=== PATIENT | female | born 1975 | race Caucasian/White ===

== ENCOUNTER 2019-12-18 20:11 | Observation (INO) ==
[2019-12-18] MEDS ORDERED: Morphine Sulfate 2 MG/ML SYRINGE IVP ONE ×2 (21:27→23:38)
[2019-12-18] MEDS ORDERED: *HR* Promethazine 25 MG/ML VIAL IM ONE (21:27)
[2019-12-18] MEDS ORDERED: 0.9 % Sodium Chloride 1,000 ML IVC ONE (21:27)
[2019-12-18] MEDS ORDERED: Isovue-370 500 ML BOTTLE IVP ONE (21:45)
[2019-12-18 22:17] LABS: Bacteria,Urine Few per hpf (None-Few); Bilirubin,Urine Negative (Negative); Blood,Urine Moderate (Negative); Clarity,Urine Turbid (Clear); Color,Urine Yellow (Yellow); Glucose,Urine (UA) Normal (Normal); Granular Casts,Urine Few per lpf (None Seen); Hyaline Casts,Urine Few per lpf (None Seen); Ketones,Urine Negative (Negative); Leukocyte Esterase,Urine Negative (Negative); Mucus,Urine Many per lpf (None-Few); Nitrite,Urine Negative (Negative); Protein,Urine 50 mg/dL (Neg-Trace); Specific Gravity,Urine 1.026 (1.010-1.025); Squamous Epithelial Cell,Urine Many per hpf (None-Few); Urobilinogen,Urine Normal (Normal)
[2019-12-18 22:21] LABS: Basophils # 0.1 K/mcL (0.0-0.2); Basophils % 0.4 %; Eosinophils % 0.2 %; Hematocrit 43.3 % (35.3-44.9); Hemoglobin 14.5 g/dL (11.5-15.4); Immature Granulocytes % 0.4 % (0-4); Lymphocytes # 1.4 K/mcL (0.6-4.6); Lymphocytes % 8.4 %; Mean Corpuscular HGB Conc 33.5 g/dL (31.6-35.5); Mean Corpuscular Hemoglobin 32.2 pg (28.0-33.3); Mean Platelet Volume 9.7 fL (9.4-12.4); Monocytes # 0.7 K/mcL (0.0-1.3); Monocytes % 4.3 %; Neutrophils # 14.8 K/mcL (1.6-8.9); Platelet Count 397 K/mcL (140-400); Red Blood Count 4.51 M/mcL (3.82-4.97); Red Cell Distribution Width 14.4 % (11.5-14.5); Segmented Neutrophils % 86.3 %; White Blood Count 17.1 K/mcL (4.3-11.1)
[2019-12-18 22:30] LABS: Alanine Aminotransferase 8 Units/L (7-52); Albumin 3.9 g/dL (3.5-5.7); Albumin/Globulin Ratio 1.2 (1.1-2.2); Alkaline Phosphatase 75 Units/L (34-104); Aspartate Amino Transferase 12 Units/L (13-39); BUN/Creatinine Ratio 11 (6-26); Bilirubin,Direct 0.1 mg/dL (0.0-0.2); Bilirubin,Indirect 0.3 mg/dL (0.0-1.0); Bilirubin,Total 0.4 mg/dL (0.3-1.0); Blood Urea Nitrogen 8 mg/dL (6-20); Calcium 9.2 mg/dL (8.6-10.3); Carbon Dioxide 29 mEq/L (23-29); Chloride 103 mEq/L (98-107); Globulin 3.3 g/dL (2.4-3.5); Glucose 145 mg/dL (70-105); Lipase 27 Units/L (11-82); Osmolality,Calculated 291 (280-300); Potassium 3.5 mEq/L (3.5-5.1); Sodium 140 mEq/L (136-145); Total Protein 7.2 g/dL (6.4-8.9); eGFR For African Americans > 60 (> 60); eGFR For Non-African Americans > 60 (> 60)
[2019-12-18] MEDS ORDERED: MetroNIDAZOLE 500 MG/100 ML 500 MG/100 ML BAG IVPB ONE (23:30)
[2019-12-19] MEDS ORDERED: Ondansetron 4 MG/2 ML VIAL IVP PRN (02:42)
[2019-12-19] MEDS ORDERED: Naloxone 0.4 MG/ML INJ IVP PRN (02:42)
[2019-12-19] MEDS ORDERED: 0.9 % Sodium Chloride 1,000 ML IVC SCH (02:45)
[2019-12-19] MEDS ORDERED: methylPREDNISolone 125 MG/2 ML VIAL IVP SCH (03:30)
[2019-12-19 05:35] LABS: Basophils % 0.3 %; Eosinophils # 0.1 K/mcL (0.0-0.6); Eosinophils % 0.8 %; Hematocrit 38.3 % (35.3-44.9); Immature Granulocytes % 0.4 % (0-4); Lymphocytes # 1.5 K/mcL (0.6-4.6); Mean Corpuscular HGB Conc 32.9 g/dL (31.6-35.5); Mean Corpuscular Hemoglobin 32.4 pg (28.0-33.3); Mean Corpuscular Volume 98.5 fL (83.0-100.0); Monocytes # 0.6 K/mcL (0.0-1.3); Monocytes % 5.6 %; Neutrophils # 7.9 K/mcL (1.6-8.9); Platelet Count 309 K/mcL (140-400); Red Blood Count 3.89 M/mcL (3.82-4.97); Red Cell Distribution Width 14.6 % (11.5-14.5); Segmented Neutrophils % 77.9 %; White Blood Count 10.1 K/mcL (4.3-11.1)
[2019-12-19 05:36] LABS: Hemoglobin 12.6 g/dL (11.5-15.4)
[2019-12-19 05:53] LABS: Alanine Aminotransferase 6 Units/L (7-52); Albumin 3.1 g/dL (3.5-5.7); Albumin/Globulin Ratio 1.2 (1.1-2.2); Alkaline Phosphatase 55 Units/L (34-104); Aspartate Amino Transferase 11 Units/L (13-39); BUN/Creatinine Ratio 11 (6-26); Bilirubin,Total 0.5 mg/dL (0.3-1.0); Blood Urea Nitrogen 6 mg/dL (6-20); Calcium 7.8 mg/dL (8.6-10.3); Carbon Dioxide 25 mEq/L (23-29); Chloride 107 mEq/L (98-107); Globulin 2.6 g/dL (2.4-3.5); Glucose 118 mg/dL (70-105); Osmolality,Calculated 285 (280-300); Potassium 3.3 mEq/L (3.5-5.1); Sodium 138 mEq/L (136-145); Total Protein 5.7 g/dL (6.4-8.9); eGFR For African Americans > 60 (> 60); eGFR For Non-African Americans > 60 (> 60)
[2019-12-19 07:30] VITALS: BP 102/66
== END 2019-12-19 10:44 | disposition home or self-care (01) ==
LOC: 3ANU 20:11 → EMEROOARM 20:11 → SUATTDRO 12-19 01:53 → 3ANU 12-19 02:20
PROVIDERS: ADMIT Student in an Organized Health Care Education/Training Program; ATTEND Student in an Organized Health Care Education/Training Program

== ENCOUNTER 2021-04-10 04:26 | Observation (INO) ==
[2021-04-10] MEDS ORDERED: *HR* HYDROmorphone (PF) 1 MG/ML SYRINGE IVP ONE ×2 (05:16→07:36)
[2021-04-10] MEDS ORDERED: Ondansetron 4 MG/2 ML VIAL IVP ONE (05:16)
[2021-04-10] MEDS ORDERED: Isovue-370 500 ML BOTTLE IVP ONE (05:17)
[2021-04-10 05:29] LABS: Basophils # 0.1 K/mcL (0.0-0.2); Basophils % 0.6 %; Eosinophils # 0.2 K/mcL (0.0-0.6); Eosinophils % 1.7 %; Hematocrit 38.1 % (35.3-44.9); Hemoglobin 12.7 g/dL (11.5-15.4); Immature Granulocytes % 0.2 % (0-4); Lymphocytes # 1.8 K/mcL (0.6-4.6); Lymphocytes % 14.3 %; Mean Corpuscular HGB Conc 33.3 g/dL (31.6-35.5); Mean Corpuscular Hemoglobin 31.8 pg (28.0-33.3); Mean Corpuscular Volume 95.3 fL (83.0-100.0); Mean Platelet Volume 9.4 fL (9.4-12.4); Monocytes # 0.9 K/mcL (0.0-1.3); Monocytes % 6.8 %; Neutrophils # 9.7 K/mcL (1.6-8.9); Platelet Count 499 K/mcL (140-400); Red Cell Distribution Width 13.2 % (11.5-14.5); Segmented Neutrophils % 76.4 %; White Blood Count 12.8 K/mcL (4.3-11.1)
[2021-04-10 05:45] LABS: Alanine Aminotransferase 6 Units/L (7-52); Albumin 3.3 g/dL (3.5-5.7); Albumin/Globulin Ratio 1.1 (1.1-2.2); Alkaline Phosphatase 73 Units/L (34-104); Aspartate Amino Transferase 11 Units/L (13-39); BUN/Creatinine Ratio 7 (6-26); Bilirubin,Total 0.4 mg/dL (0.3-1.0); Blood Urea Nitrogen 5 mg/dL (6-20); Calcium 8.7 mg/dL (8.6-10.3); Carbon Dioxide 29 mEq/L (23-29); Chloride 103 mEq/L (98-107); Glucose 111 mg/dL (70-105); Lipase 29 Units/L (11-82); Osmolality,Calculated 284 (280-300); Potassium 2.8 mEq/L (3.5-5.1); Sodium 138 mEq/L (136-145); Total Protein 6.3 g/dL (6.4-8.9); eGFR For African Americans > 60 (> 60); eGFR For Non-African Americans > 60 (> 60)
[2021-04-10] MEDS ORDERED: Ondansetron 4 MG/2 ML VIAL IVP PRN (07:48)
[2021-04-10] MEDS ORDERED: Naloxone 0.4 MG/ML INJ IVP PRN (07:48)
[2021-04-10 08:06] LABS: Phosphorous 3.1 mg/dL (2.7-4.5)
[2021-04-10] MEDS: 0.9 % Sodium Chloride 1,000 ML IVC SCH ×2 (09:06→21:51)
[2021-04-10] MEDS: MethylPREDNISolone 40 MG/ML VIAL IVP SCH ×3 (09:38→23:20)
[2021-04-10] MEDS: clonazePAM 1 MG TABLET PO SCH (20:35)
[2021-04-11 02:54] LABS: Basophils % 0.1 %; Hematocrit 36.2 % (35.3-44.9); Hemoglobin 11.8 g/dL (11.5-15.4); Immature Granulocytes % 0.4 % (0-4); Lymphocytes # 0.9 K/mcL (0.6-4.6); Lymphocytes % 9.4 %; Mean Corpuscular HGB Conc 32.6 g/dL (31.6-35.5); Mean Corpuscular Hemoglobin 31.4 pg (28.0-33.3); Mean Corpuscular Volume 96.3 fL (83.0-100.0); Mean Platelet Volume 10.1 fL (9.4-12.4); Monocytes # 0.1 K/mcL (0.0-1.3); Monocytes % 0.8 %; Neutrophils # 8.4 K/mcL (1.6-8.9); Platelet Count 428 K/mcL (140-400); Red Blood Count 3.76 M/mcL (3.82-4.97); Segmented Neutrophils % 89.3 %; White Blood Count 9.5 K/mcL (4.3-11.1)
[2021-04-11 03:26] LABS: Alanine Aminotransferase 5 Units/L (7-52); Albumin 2.8 g/dL (3.5-5.7); Alkaline Phosphatase 58 Units/L (34-104); Aspartate Amino Transferase 8 Units/L (13-39); BUN/Creatinine Ratio 10 (6-26); Bilirubin,Total 0.3 mg/dL (0.3-1.0); Blood Urea Nitrogen 5 mg/dL (6-20); Carbon Dioxide 22 mEq/L (23-29); Chloride 107 mEq/L (98-107); Globulin 2.8 g/dL (2.4-3.5); Glucose 114 mg/dL (70-105); Magnesium 1.6 mg/dL (1.6-2.6); Osmolality,Calculated 284 (280-300); Potassium 3.6 mEq/L (3.5-5.1); Sodium 138 mEq/L (136-145); Total Protein 5.6 g/dL (6.4-8.9); eGFR For African Americans > 60 (> 60); eGFR For Non-African Americans > 60 (> 60)
[2021-04-11] MEDS: clonazePAM 1 MG TABLET PO SCH (07:48)
[2021-04-11] MEDS: MethylPREDNISolone 40 MG/ML VIAL IVP SCH (07:49)
[2021-04-11] MEDS ORDERED: MetroNIDAZOLE 500 MG/100 ML 500 MG/100 ML BAG IVPB SCH (08:00)
[2021-04-11] MEDS ORDERED: atenoloL 50 MG TABLET PO SCH (09:00)
[2021-04-11 11:53] VITALS: BP 103/63; PULSE 62; TEMP 98.6; O2SAT 95
== END 2021-04-11 13:09 | disposition home or self-care (01) ==
LOC: 3ANU 04:26 → EMEROOARM 04:26 → 3ANU 14:05
PROVIDERS: ADMIT Family Medicine; ATTEND Family Medicine